=== PATIENT | female | born 1945 | race Two or more races ===

== ENCOUNTER 2017-08-04 10:11 | Emergency (ER) | payer OTHER ==
[2017-08-04 10:20] VITALS: BMI 25.4
[2017-08-04] MEDS ORDERED: ACETAMINOPHEN 500 MG TABLET (FP) PO ONE (10:23)
--- NOTE | 2017-08-04 11:51 | PDOC ---
History of Present Illness - General Chief Complaint: Sore Throat Stated Complaint: SORE THROAT/FEVER Time Seen by Provider: 08/04/17 10:47 History Source: Patient Exam Limitations: No Limitations, Language Barrier (daughter at bedside to translate) - History of Present Illness Initial Comments: 08/04/17 11:48 Patient is a [72-year-old female with history of hypertension and diabetes name of medications are not known. Two Day history of fever, cough, headache, sore throat. No nausea vomiting or diarrhea, grandchildren with cough and cold-like symptoms.] Allergies: No known allergies Family History: Non-contributory Social History: Denies smoking, alcohol use, or IVDU Vital signs on arrival are [notable for pulse of 102] Review of Systems GENERAL/CONSTITUTIONAL: [Fever and chills. No weakness. No weight change.] HEAD, EYES, EARS, NOSE AND THROAT: [No change in vision. No ear pain or discharge. Sore throat] CARDIOVASCULAR: [No chest pain or shortness of breath.] RESPIRATORY: [Moist cough, no wheezing, or hemoptysis.] GASTROINTESTINAL: [No nausea, vomiting, diarrhea or constipation. No rectal bleeding.] GENITOURINARY: [No dysuria, frequency, or change in urination.] MUSCULOSKELETAL: [No joint or muscle swelling or pain. No neck or back pain.] SKIN AND BREASTS: [No rash or easy bruising.] NEUROLOGIC: [No headache, vertigo, loss of consciousness, or loss of sensation.] PSYCHIATRIC: [No depression or anxiety.] ENDOCRINE: [No increased thirst. No abnormal weight change.] HEMATOLOGIC/LYMPHATIC: [No anemia, easy bleeding, or history of blood clots.] ALLERGIC/IMMUNOLOGIC: [No hives or skin allergy. No latex allergy.] Physical Exam: GENERAL: [The patient is awake, alert, and fully oriented, in no acute distress. ] HEAD: [Normal with no signs of trauma.] EYES: [Pupils equal, round and reactive to light, extraocular movements intact, sclera anicteric, conjunctiva clear.] ENT: [Ears normal, nares patent, oropharynx clear without exudates. Moist mucous membranes. No uvula deviation] NECK: [Normal range of motion, supple without lymphadenopathy, JVD, or masses.] LUNGS: [Breath sounds equal, clear to auscultation bilaterally. No wheezes, and no crackles.] HEART: [Regular rate and rhythm, normal S1 and S2 without murmur, rub or gallop. ] ABDOMEN: [Soft, nontender, normoactive bowel sounds. No guarding, no rebound. No masses. No bruising or abrasions] MUSCULOSKELETAL: [Normal range of motion, no edema. No clubbing or cyanosis. No cords, erythema, or tenderness. No CVA Tenderness with fist.] NEUROLOGICAL: [Cranial nerves II through XII grossly intact. Normal speech, normal gait.] SKIN: [Warm, Dry, normal turgor, no rashes or lesions noted.] Past History - Past Medical History Allergies/Adverse Reactions: Allergies Allergy/AdvReac Type Severity Reaction Status Date / Time No Known Allergies Allergy Verified 08/04/17 10:16 Home Medications: Ambulatory Orders Azithromycin [Zithromax 250mg Tablets -] 250 mg PO UTDICT #6 tab 08/04/17 Ibuprofen [Motrin -] 400 mg PO TID #21 tablet 08/04/17 Oseltamivir Phosphate [Tamiflu -] 75 mg PO BID #10 capsule 08/04/17 COPD: No Diabetes: Yes HTN: Yes - Immunization History Immunization Up to Date: No - Suicide/Smoking/Psychosocial Hx Smoking History: Never smoked Hx Alcohol Use: No Drug/Substance Use Hx: No *Physical Exam - Vital Signs Last Vital Signs Temp Pulse Resp BP Pulse Ox 99.1 F 102 H 18 117/54 95 08/04/17 11:20 08/04/17 10:17 08/04/17 10:17 08/04/17 10:17 08/04/17 10:17 ED Treatment Course - ADDITIONAL ORDERS Additional order review: 08/04/17 10:52 Influenza Types A,B Antigen (LOUIE) - Final Nasopharyngeal Swab - Final 08/04/17 10:52 Group A Strep Rapid Antigen - Final Throat - Medications Given in the ED: ED Medications Discontinued Medications Generic Name Dose Route Start Last Admin Trade Name Freq PRN Reason Stop Dose Admin Acetaminophen 975 mg 08/04/17 10:23 08/04/17 10:24 Tylenol - PO 08/04/17 10:24 975 mg NOW ONE Administration Medical Decision Making - Medical Decision Making 08/04/17 11:50 A/P: Patient with fever, chills, sore throat, headache, cough. Rapid influenza and rapid strep sent both are negative will perform chest x-ray urinalysis urine culture. She is now afebrile. 08/04/17 15:53 Laboratory Results - last 24 hr 08/04/17 11:54 Urine Color Dkyellow Urine Appearance Slcloudy Urine pH 5.0 Ur Specific [place] 1.020 Urine Protein 2+ H Urine Glucose (UA) Negative Urine Ketones Negative Urine Blood Negative Urine Nitrite Negative Urine Bilirubin Negative Urine Urobilinogen Negative Ur Leukocyte Esterase Negative Urine WBC (Auto) 2 Urine RBC (Auto) 1 Ur Epithelial Cells Rare Hyaline Casts 5 Urine Mucus Rare Urine is negative, chest x-ray with no infiltrate, shows mild atelectasis. Patient is well-appearing, afebrile, tolerating fluids, denies headache currently. Nonseptic appearing. Daughter states she will follow-up tomorrow at primary care doctor or Dr. Cheema. I will discharge patient home on Tamiflu, Motrin as needed for fever and azithromycin. I discussed the physical exam findings, ancillary test results and final diagnoses with the patient. I answered all of the patient's questions. The patient was satisfied with the care received and felt comfortable with the discharge plan and treatment plan. The patient will call to arrange follow-up and will return to the Emergency Department with any new, persistent or worsening symptoms. *DC/Admit/Observation/Transfer Diagnosis at time of Disposition: Influenza-like illness - Discharge Dispostion Disposition: HOME Condition at time of disposition: Stable Admit: No - Prescriptions Prescriptions: Azithromycin [Zithromax 250mg Tablets -] 250 mg PO UTDICT #6 tab Ibuprofen [Motrin -] 400 mg PO TID #21 tablet Oseltamivir Phosphate [Tamiflu -] 75 mg PO BID #10 capsule - Referrals Referrals: Broderick Garcia MD [Staff Physician] - - Patient Instructions Additional Instructions: Increase fluids to prevent dehydration Tylenol for headache Motrin for fever greater than 101.0 Please followup with primary care in 2 days. I have given her the number for Dr. Cheema Return to emergency department any increased cough, dizziness, weakness, fever, inability to drink or other concerns - Post Discharge Activity
[2017-08-04 12:59] LABS: URINE APPEARANCE SLCLOUDY; URINE BILIRUBIN NEGATIVE (NEGATIVE); URINE BLOOD NEGATIVE (NEGATIVE); URINE COLOR DKYELLOW; URINE GLUCOSE (UA) NEGATIVE (NEGATIVE); URINE KETONE NEGATIVE (NEGATIVE); URINE LEUK ESTERASE NEGATIVE (NEGATIVE); URINE NITRITE NEGATIVE (NEGATIVE); URINE UROBILINOGEN NEGATIVE mg/dL (0.2-1.0)
[2017-08-04 13:00] LABS: URINE PROTEIN 2+ (NEGATIVE)
[2017-08-04 13:02] LABS: EPI CELLS RARE /HPF (FEW); URINE HYALINE CAST 5 /lpf; URINE MUCUS RARE
[2017-08-04 13:56] VITALS: BP 112/62; PULSE 94; TEMP 98.4
== END 2017-08-04 14:09 | disposition home or self-care (01) ==
LOC: JERFT 10:11
DX: J11.1 Influenza due to unidentified influenza virus with other respiratory manifestations (principal); I10 Essential (primary) hypertension; E11.9 Type 2 diabetes mellitus without complications
CPT/HCPCS: 71046-TC-FY; 81003; 81015; 87070; 87086; 87430; 87804; 99282-25